=== PATIENT | female | born 1970 | race Hispanic/Latino ===

== ENCOUNTER → 2021-07-02 | Outpatient (CLI) | payer BC, OTHER | LOC: MAMMO 12:06 | PROVIDERS: ATTEND Internal Medicine | DX: Z12.31 Encounter for screening mammogram for malignant neoplasm of breast (principal); K59.00 Constipation, unspecified | CPT/HCPCS: 74018; 77067 ==

== ENCOUNTER → 2023-01-02 | Outpatient (CLI) | payer OTHER ==
[~2023-01-02] MED LIST: SENOKOT-S TABL1 EACH PO
== END ==
LOC: RAD 13:15
PROVIDERS: ATTEND Family Medicine
DX: M79.671 Pain in right foot (principal)

== ENCOUNTER → 2023-08-06 | Outpatient (REF) | payer OTHER ==
[~2023-08-06] MED LIST changes: +IBUPROFEN200 MG PO
== END ==
LOC: US 11:58
PROVIDERS: ATTEND Family Medicine
DX: N28.1 Cyst of kidney, acquired (principal)
CPT/HCPCS: 76770; 76857

== ENCOUNTER → 2025-01-06 | Day surgery (SDC) | payer OTHER ==
[~2025-01-06] MED LIST changes: +DULCOLAX10 MG PO; +FENTANYL CITRATE/PF 100MCG/2 ML INJ ONE; +GLUCAGON FOR INJ 1 MG VIAL ONE; +LIDOCAINE HCL 2% LOCAL INJ 5 ML SDV VIAL INJ ONE; +MIDAZOLAM HCL 2 MG/2 ML VIAL ONE; +OMEPRAZOLE40 MG PO; +PHENYLEPHRINE HCL 1% 10 MG/ML VIAL ONE; +PROCTOFOAM-HC F10 GM TOP; +PROPOFOL IV EMULSION 10 MG/ML 20 ML VIAL ONE
[2025-01-06 09:13] VITALS: TEMP 97.6
[2025-01-06 09:40] VITALS: BP 128/76; PULSE 60; RESP 16; O2SAT 97
[2025-01-06] MEDS: LACTATED RINGER'S 1,000 ML ONE (09:46)
== END | disposition home or self-care (01) ==
LOC: OR 06:59
PROVIDERS: ATTEND Internal Medicine Gastroenterology
DX: Z12.11 Encounter for screening for malignant neoplasm of colon (principal); Z86.0100 Personal history of colon polyps, unspecified; K29.50 Unspecified chronic gastritis without bleeding; K21.9 Gastro-esophageal reflux disease without esophagitis; K28.9 Gastrojejunal ulcer, unspecified as acute or chronic, without hemorrhage or perforation; K62.5 Hemorrhage of anus and rectum; K62.89 Other specified diseases of anus and rectum; K59.00 Constipation, unspecified; D64.9 Anemia, unspecified; R63.4 Abnormal weight loss; N20.0 Calculus of kidney; Z01.810 Encounter for preprocedural cardiovascular examination; Z79.4 Long term (current) use of insulin; Z79.899 Other long term (current) drug therapy
CPT/HCPCS: 43239; 45378; 93005; J1610; J2003; J2250; J2371; J2704; J3010; J7121